=== PATIENT | male | born 1945 | race Caucasian/White ===

== ENCOUNTER → 2024-04-16 13:18 | Outpatient (REF) | payer MEDICARE, BC, SELFPAY ==
[2024-04-16 14:05] LABS: % Basophils 0.4 % (0-2); % Eosinophils 5.9 % (0-6); % Immature Granulocytes 0.3 % (0-0.5); % Lymphocytes 18.2 % (20.5-51.1); % Monocytes 7.1 % (1.7-9.3); % Neutrophils 68.1 % (42.2-75.2); Absolute Eosinophils 0.4 10^3/uL (0-0.7); Absolute Lymphocytes 1.3 10^3/uL (1.2-3.4); Absolute Monocytes 0.5 10^3/uL (0.1-0.6); Hematocrit 30.8 % (39.0-52.0); Hemoglobin 9.9 g/dL (13.0-18.0); Mean Corp Hgb Conc. 32.1 g/dL (33.0-37.0); Mean Corpuscular Volume 99.7 fL (80.0-94.0); Mean Platelet Volume 10.5 fL (7.4-10.4); Nucleated Red Blood Cells % 0 % (-); Platelet Count 257 10^3/uL (130-400); Red Blood Cell Count 3.09 10^6/uL (4.70-6.10); Red Cell Dist. Width 13.2 % (11.5-14.5); White Blood Cell Count 7.3 10^3/uL (4.8-10.8)
[2024-04-16 14:20] LABS: Erythrocyte Sed Rate 21 mm/hour (0-20)
[2024-04-16 15:16] LABS: ALT (SGPT) 24 U/L (0-50); AST (SGOT) 30 U/L (17-59); Albumin 4.1 g/dl (3.5-5.0); Alkaline Phosphatase 59 U/L (38-126); Blood Urea Nitrogen 32 mg/dl (9-20); Calcium 9.3 mg/dl (8.4-10.2); Carbon Dioxide 26 mmol/L (22-30); Chloride 104 mmol/L (98-107); Glucose 93 mg/dl (70-99); Potassium 4.9 mmol/L (3.5-5.1); Sodium 139 mmol/L (135-145); Total Bilirubin 0.4 mg/dl (0.2-1.3); Total Protein 6.7 g/dl (6.3-8.2); eGFR 47.06
[2024-04-16 15:24] LABS: C-Reactive Protein < 5.00 mg/L (0.0-10.00)
== END ==
LOC: REG 13:18
PROVIDERS: ATTENDING PHYSICIAN Internal Medicine Rheumatology; FAMILY PHYSICIAN Family Medicine
DX: M06.4 Inflammatory polyarthropathy (principal); M35.3 Polymyalgia rheumatica
CPT/HCPCS: 36415; 80053; 85025; 85652; 86140

== ENCOUNTER → 2024-07-15 17:15 | Outpatient (REF) | payer MEDICARE, BC, SELFPAY ==
[2024-07-15 18:13] LABS: Calcium 9.4 mg/dl (8.4-10.2)
[2024-07-15 18:31] LABS: Free T4 0.94 ng/dl (0.78-2.19)
[2024-07-15 18:45] LABS: TSH 0.89 uIU/ml (0.47-4.68)
[2024-07-17 12:05] LABS: Thyroglobulin Antibodies <0.9 IU/mL (0.0-4.0); Thyroid Peroxidase Ab (TPO) 0.8 IU/mL (0.0-9.0)
== END ==
LOC: REG 17:15
PROVIDERS: ATTENDING PHYSICIAN Internal Medicine Endocrinology, Diabetes & Metabolism; FAMILY PHYSICIAN Internal Medicine Endocrinology, Diabetes & Metabolism
DX: C73 Malignant neoplasm of thyroid gland (principal)
CPT/HCPCS: 36415; 82310; 84439; 84443; 86376; 86800

== ENCOUNTER → 2025-07-20 15:47 | Outpatient (REF) | payer MEDICARE, BC, SELFPAY | LOC: RAD 15:47 | PROVIDERS: ATTENDING PHYSICIAN Family Medicine | DX: M25.552 Pain in left hip (principal) | CPT/HCPCS: 73502 ==

== ENCOUNTER → 2025-07-27 14:18 | Outpatient (REF) | payer MEDICARE, BC, SELFPAY ==
[2025-07-27 16:38] LABS: ALT (SGPT) 38 U/L (0-50); AST (SGOT) 35 U/L (17-59); Albumin 4.2 g/dl (3.5-5.0); Alkaline Phosphatase 59 U/L (38-126); Blood Urea Nitrogen 34 mg/dl (9-20); Calcium 9.3 mg/dl (8.4-10.2); Carbon Dioxide 27 mmol/L (22-30); Chloride 105 mmol/L (98-107); Glucose 92 mg/dl (70-99); HDL Cholesterol 65 mg/dl; Iron 49 ug/dl (49-181); LDL Cholesterol, Calculated 50 mg/dl; Potassium 4.4 mmol/L (3.5-5.1); Sodium 138 mmol/L (135-145); Total Protein 6.5 g/dl (6.3-8.2); Very Low Density Lipoprotein 12 mg/dl (0-30); eGFR 50.81
[2025-07-27 16:48] LABS: Total Iron Binding Capacity 271 ug/dl (261-462)
[2025-07-27 17:37] LABS: Vitamin D, 25-OH*** 89.0 ng/mL (30-80)
[2025-07-27 18:12] LABS: Ferritin 52.1 ng/ml (17.9-464.0)
[2025-07-27 18:44] LABS: Folate 7.4 ng/ml (2.76-20)
[2025-07-27 20:00] LABS: Vitamin B12 941 pg/ml (239-931)
== END ==
LOC: REG 14:18
PROVIDERS: ATTENDING PHYSICIAN Family Medicine; OTHER PHYSICIAN Internal Medicine Rheumatology; REFERRING PHYSICIAN Internal Medicine Endocrinology, Diabetes & Metabolism
DX: G60.8 Other hereditary and idiopathic neuropathies (principal); N18.31 Chronic kidney disease, stage 3a; M35.3 Polymyalgia rheumatica; D64.9 Anemia, unspecified; M25.552 Pain in left hip; R26.89 Other abnormalities of gait and mobility; M06.4 Inflammatory polyarthropathy; I73.00 Raynaud's syndrome without gangrene
CPT/HCPCS: 36415; 80053; 80061; 82306; 82607; 82728; 82746; 83540; 83550; 83970; 84155; 84165

== ENCOUNTER → 2025-08-17 07:00 | Outpatient (REF) | payer MEDICARE, BC, SELFPAY | LOC: MRI 07:00 | PROVIDERS: ATTENDING PHYSICIAN Family Medicine | DX: G60.8 Other hereditary and idiopathic neuropathies (principal); R26.89 Other abnormalities of gait and mobility | CPT/HCPCS: 72148 ==

== ENCOUNTER → 2025-08-31 06:38 | Outpatient (REF) | payer MEDICARE, BC, SELFPAY | LOC: MRI 06:38 | PROVIDERS: ATTENDING PHYSICIAN Family Medicine | DX: G60.8 Other hereditary and idiopathic neuropathies (principal); R26.89 Other abnormalities of gait and mobility | CPT/HCPCS: 70551; 72141 ==

== ENCOUNTER → 2025-09-07 13:28 | Outpatient (REF) | payer MEDICARE, BC, SELFPAY | LOC: RAD 13:28 | PROVIDERS: ATTENDING PHYSICIAN Family Medicine | DX: M79.89 Other specified soft tissue disorders (principal); R60.9 Edema, unspecified | CPT/HCPCS: 93971 ==

== ENCOUNTER → 2025-09-14 15:14 | Outpatient (REF) | payer MEDICARE, BC, SELFPAY | LOC: RCS 15:14 | PROVIDERS: ATTENDING PHYSICIAN Family Medicine | DX: E78.2 Mixed hyperlipidemia (principal); M79.89 Other specified soft tissue disorders | CPT/HCPCS: 36415; 83880; 93005 ==

== ENCOUNTER → 2025-10-12 08:18 | Outpatient (REF) | payer MEDICARE, BC, SELFPAY | LOC: RCS 08:18 | PROVIDERS: ATTENDING PHYSICIAN Family Medicine | DX: M79.89 Other specified soft tissue disorders (principal) | CPT/HCPCS: 93306 ==